=== PATIENT | female | born 1955 | race Caucasian/White ===

== ENCOUNTER → 2024-07-16 | Outpatient (REF) | payer MEDICARE | LOC: M SMT 12:20 | PROVIDERS: ATTEND Physician Assistant | DX: R31.0 Gross hematuria (principal) ==

== ENCOUNTER 2024-09-15 06:55 | Day surgery (SDC) | payer MEDICARE ==
[~2024-09-15] VITALS: Ht 167.6 cm; Wt 75.4 kg
[~2024-09-15 06:55] MED LIST: CALC-175 PO; KETO0.3S OD; MITOMYCIN INTRAVESIC ONE; MOXI0.5S OD; NS INTRAVESIC ONE; OMEP40CA5 PO; PREDOPD OD
[2024-09-15] MEDS: NS 1,000 ML IV SCH (07:57)
[2024-09-15] MEDS ORDERED: NITR100C2 PO (07:58)
[2024-09-15] MEDS ORDERED: ONDANSETRON 4MG 2ML VIAL As Ordered ONE (08:46)
[2024-09-15] MEDS ORDERED: LIDOCAINE 2% 100MG/5ML SDV (FOR ANES.) As Ordered ONE (08:46)
[2024-09-15] MEDS ORDERED: SUGAMMADEX SODIUM 500 MG/5 ML VIAL (BRIDION) As Ordered ONE (08:46)
[2024-09-15] MEDS ORDERED: propofoL 200 MG/20 ML VIAL As Ordered ONE (08:46)
[2024-09-15] MEDS ORDERED: MIDAZOLAM INJ 2MG/2ML VIAL As Ordered ONE (08:46)
[2024-09-15] MEDS ORDERED: fentaNYL 100 MCG/2 ML INJECTION As Ordered ONE (08:46)
[2024-09-15] MEDS ORDERED: ROCURONIUM BROMIDE 50MG/5ML VIAL As Ordered ONE (08:46)
[2024-09-15] MEDS ORDERED: ACETAMINOPHEN 1000MG 100ML IV BAG As Ordered ONE (08:46)
[2024-09-15] MEDS: ceFAZolin SOD 2 GM in IV 1 EA IV ONE (09:43)
[2024-09-15] MEDS ORDERED: ePHEDrine SULFATE 25 MG/5 ML(5MG/ML) SYRINGE As Ordered ONE (09:55)
[2024-09-15] MEDS: LIDOCAINE 2% 5ML JELLY UROJET As Ordered ONE (10:21)
[2024-09-15 13:06] VITALS: BP 144/82; TEMP 97.4; O2SAT 97
== END 2024-09-15 13:06 | disposition home or self-care (01) ==
LOC: M SDC 06:55
PROVIDERS: ATTEND Specialist
DX: C67.2 Malignant neoplasm of lateral wall of bladder (principal); Z85.72 Personal history of non-Hodgkin lymphomas; Z92.21 Personal history of antineoplastic chemotherapy; K21.9 Gastro-esophageal reflux disease without esophagitis; Z79.899 Other long term (current) drug therapy; L30.9 Dermatitis, unspecified; Z90.710 Acquired absence of both cervix and uterus; Z87.891 Personal history of nicotine dependence
CPT/HCPCS: 52235; 88305; J0131; J0690; J1100; J2250; J2405; J3010

== ENCOUNTER 2024-10-22 07:46 | Day surgery (SDC) | payer MEDICARE ==
[~2024-10-22] VITALS: Ht 167.6 cm; Wt 76.0 kg
[~2024-10-22 07:46] MED LIST changes: -MITOMYCIN INTRAVESIC ONE; +NITR100C2 PO; -NS INTRAVESIC ONE; +NYST1POW3 TOP
[2024-10-22] MEDS ORDERED: MIDAZOLAM INJ 2MG/2ML VIAL As Ordered ONE (09:21)
[2024-10-22] MEDS ORDERED: fentaNYL 250 MCG/5 ML INJECTION As Ordered ONE (09:21)
[2024-10-22] MEDS ORDERED: ROCURONIUM BROMIDE 50MG/5ML VIAL As Ordered ONE (09:22)
[2024-10-22] MEDS ORDERED: propofoL 200 MG/20 ML VIAL As Ordered ONE (09:22)
[2024-10-22] MEDS ORDERED: LIDOCAINE 2% 100MG/5ML SDV (FOR ANES.) As Ordered ONE (09:22)
[2024-10-22] MEDS ORDERED: SUGAMMADEX SODIUM 500 MG/5 ML VIAL (BRIDION) As Ordered ONE (09:22)
[2024-10-22] MEDS ORDERED: ACETAMINOPHEN 1000MG/100ML IV BAG As Ordered ONE (09:22)
[2024-10-22] MEDS ORDERED: ONDANSETRON 4MG 2ML VIAL As Ordered ONE (09:22)
[2024-10-22] MEDS: ceFAZolin SOD 2 GM in IV 1 EA IV ONE (10:30)
[2024-10-22] MEDS ORDERED: ePHEDrine SULFATE 25 MG/5 ML(5MG/ML) SYRINGE As Ordered ONE (10:45)
[2024-10-22] MEDS ORDERED: oxyCODONE 5MG TAB PO PRN (11:15)
[2024-10-22] MEDS ORDERED: ONDANSETRON 4MG 2ML VIAL IV PRN (11:15)
[2024-10-22] MEDS ORDERED: fentaNYL 100 MCG/2 ML INJECTION IV PRN (11:15)
[2024-10-22] MEDS ORDERED: MEPERIDINE 25 MG/ML 1ML VIAL IV PRN (11:15)
[2024-10-22] MEDS ORDERED: HYDROMORPHONE HCL 0.5 MG/ 0.5 ML SYRINGE IV PRN (11:15)
[2024-10-22] MEDS ORDERED: diphenhydrAMINE 50MG/ML VIAL IV PRN (11:15)
[2024-10-22] MEDS ORDERED: METOCLOPRAMIDE INJ 10MG/2ML VIAL IV PRN (11:15)
[2024-10-22] MEDS ORDERED: OXYB5TAB14 PO (11:17)
[2024-10-22] MEDS ORDERED: PYRI1TAB5 PO (11:17)
[2024-10-22] MEDS ORDERED: MACR100C43 PO (11:17)
[2024-10-22 12:00] VITALS: BP 162/80; TEMP 98.4; O2SAT 98
== END 2024-10-22 12:30 | disposition home or self-care (01) ==
LOC: M SDC 07:46
PROVIDERS: ATTEND Urology
DX: C67.8 Malignant neoplasm of overlapping sites of bladder (principal); R32 Unspecified urinary incontinence; K21.9 Gastro-esophageal reflux disease without esophagitis; Z79.899 Other long term (current) drug therapy; Z92.21 Personal history of antineoplastic chemotherapy; Z90.710 Acquired absence of both cervix and uterus; Z87.891 Personal history of nicotine dependence
CPT/HCPCS: 52240; 88307; C1769; J0131; J0690; J1100; J2250; J2405; J3010

== ENCOUNTER → 2025-02-16 | Outpatient (REF) | payer MEDICARE ==
[~2025-02-16] MED LIST changes: +MACR100C43 PO; +OXYB5TAB14 PO; +PYRI1TAB5 PO
[2025-02-16 15:51] LABS: APPEARANCE, URINE HAZY (CLEAR); BACTERIA, URINE AUTO NEGATIVE (NEGATIVE); BILIRUBIN, URINE AUTO NEGATIVE (NEGATIVE); BLOOD, URINE BLOOD NEGATIVE (NEGATIVE); COLOR, URINE YELLOW (YELLOW); GLUCOSE, URINE (UA) AUTO NEGATIVE (NEGATIVE); KETONE, URINE AUTO NEGATIVE (NEGATIVE); LEUKOCYTE ESTERASE, URINE AUTO NEGATIVE (NEGATIVE); NITRITE, URINE AUTO NEGATIVE (NEGATIVE); PROTEIN, URINE AUTO NEGATIVE (NEGATIVE); RBC, URINE AUTO 0 /HPF (0-3); SPECIFIC GRAVITY URINE AUTO 1.018 (1.002-1.035); SQUAMOUS EPITHELIAL CELL UR AU 0 /HPF (0-6); UROBILINOGEN, URINE AUTO 0.2 mg/dL (0.0-2.0); WBC, URINE AUTO 0 /HPF (0-3)
== END ==
LOC: M SMT 15:00
PROVIDERS: ATTEND Urology
DX: C67.9 Malignant neoplasm of bladder, unspecified (principal)

== ENCOUNTER 2025-03-29 06:37 | Day surgery (SDC) | payer MEDICARE ==
[~2025-03-29] VITALS: Ht 167.6 cm; Wt 76.7 kg
[~2025-03-29 06:37] MED LIST changes: +B-12100021 PO; +CALC-190 PO; +VITA200012 PO; +ceFAZolin SOD 2 GM IV ONCE IV ONE
[2025-03-29] MEDS ORDERED: LIDOCAINE 2% 100MG/5ML SDV (FOR ANES.) As Ordered ONE (07:41)
[2025-03-29] MEDS ORDERED: SUGAMMADEX SODIUM 500 MG/5 ML VIAL As Ordered ONE (07:41)
[2025-03-29] MEDS ORDERED: ROCURONIUM BROMIDE 50MG/5ML VIAL As Ordered ONE (07:41)
[2025-03-29] MEDS ORDERED: propofoL 200 MG/20 ML VIAL As Ordered ONE (07:41)
[2025-03-29] MEDS ORDERED: ONDANSETRON 4MG 2ML VIAL As Ordered ONE (07:41)
[2025-03-29] MEDS ORDERED: MIDAZOLAM INJ 2MG/2ML VIAL As Ordered ONE (07:44)
[2025-03-29] MEDS ORDERED: fentaNYL 100 MCG/2 ML INJECTION As Ordered ONE (07:45)
[2025-03-29] MEDS: LR 1,000 ML IV SCH (08:10)
[2025-03-29] MEDS ORDERED: MITOMYCIN 40MG IN 40ML SWFI SYRINGE INTRAVESIC ONE (08:45)
[2025-03-29] MEDS ORDERED: ACETAMINOPHEN 1000MG/100ML IV BAG As Ordered ONE (08:56)
[2025-03-29] MEDS ORDERED: HYDROMORPHONE HCL 0.5 MG/ 0.5 ML SYRINGE IV PRN (09:10)
[2025-03-29] MEDS ORDERED: LR 1,000 ML IV SCH (09:10)
[2025-03-29] MEDS ORDERED: oxyCODONE 5MG TAB PO PRN (09:10)
[2025-03-29] MEDS ORDERED: ONDANSETRON 4MG 2ML VIAL IV PRN (09:10)
[2025-03-29] MEDS ORDERED: fentaNYL 100 MCG/2 ML INJECTION IV PRN (09:10)
[2025-03-29 10:37] VITALS: BP 164/86; TEMP 96.4; O2SAT 99
== END 2025-03-29 10:45 | disposition home or self-care (01) ==
LOC: M SDC 06:37
PROVIDERS: ATTEND Urology
DX: C67.2 Malignant neoplasm of lateral wall of bladder (principal); D09.0 Carcinoma in situ of bladder; C67.1 Malignant neoplasm of dome of bladder; Z79.899 Other long term (current) drug therapy; Z92.21 Personal history of antineoplastic chemotherapy; Z87.891 Personal history of nicotine dependence
CPT/HCPCS: 52234; 88305; J0131; J1100; J2250; J2405; J3010

== ENCOUNTER → 2025-08-11 | Outpatient (REF) | payer MEDICARE ==
[~2025-08-11] MED LIST changes: -ceFAZolin SOD 2 GM IV ONCE IV ONE
[2025-08-11 16:00] LABS: APPEARANCE, URINE MANUAL CLEAR (CLEAR); COLOR, URINE MANUAL LT YELLOW (YELLOW); PH,URINE MAN 5.0 UNITS (5.0 - 7.0); SPECIFIC GRAVITY,URINE MANUAL 1.025 (1.002-1.035)
[2025-08-11 16:01] LABS: BILIRUBIN, URINE MANUAL NEGATIVE (NEGATIVE); BLOOD URINE MANUAL NEGATIVE (NEGATIVE); GLUCOSE, URINE (UA) MANUAL NEGATIVE (NEGATIVE); KETONE, URINE MANUAL NEGATIVE (NEGATIVE); LEUKOCYTE ESTERASE, URINE MAN NEGATIVE (NEGATIVE); NITRITE, URINE MANUAL NEGATIVE (NEGATIVE); PROTEIN, URINE MANUAL NEGATIVE (NEGATIVE); UROBILINOGEN, URINE MANUAL NORMAL (NORMAL)
[2025-08-11 16:17] LABS: BACTERIA, URINE NONE SEEN; MUCUS, URINE MOD AMOUNT (NEGATIVE); RBC, URINE NONE SEEN /hpf (0-3)
[2025-08-11 16:18] LABS: HYALINE CAST, URINE NONE SEEN /lpf (0-1); SQUAMOUS EPITHELIAL CELL URINE SMALL AMOUNT /hpf (SMALL AMT)
== END ==
LOC: M SMT 15:22
PROVIDERS: ATTEND Urology
DX: Z85.51 Personal history of malignant neoplasm of bladder (principal)